=== PATIENT | female | born 1975 | race Caucasian/White ===

== ENCOUNTER 2021-08-21 14:58 | Emergency (ER) | payer BC ==
[~2021-08-21] VITALS: Ht 165.1 cm; Wt 75.3 kg
[2021-08-21 14:58] VITALS: BP_SYST 154
--- NOTE | 2021-08-21 15:06 | NUR ---
Omid ramos in ED - 08/21/21 at [address] Hays at bedside to assess pt.
--- NOTE | 2021-08-21 15:15 | NUR ---
Placed in room 08 . Placed on field enumerator, blood pressure machine and pulse oximeter. To gown for exam. Side rails up.
--- NOTE | 2021-08-21 15:20 | NUR ---
Dr Hays evaluating patient at bedside
--- NOTE | 2021-08-21 15:36 | NUR ---
Urine specimen obtained and sent to lab for analysis. HCG done.
[2021-08-21] MEDS ORDERED: NACL 0.9% 1,000 ML IV ONE (15:45)
--- NOTE | 2021-08-21 15:55 | NUR ---
# 20 gauge angiocath placed to left AC. Use of asceptic technique. Opsite placed over site. Blood return noted. Blood for lab drawn from site. Flushed with 10 cc of normal saline. No evidence of infiltration noted. Patient tolerated well.
[2021-08-21 16:01] LABS: BASOPHILS # (AUTO) 0.1 K/uL (0.0-0.2); BASOPHILS % (AUTO) 0.6 % (0.0-2.0); EOSINOPHILS % (AUTO) 0.5 % (0.0-4.0); HEMATOCRIT 39.9 % (36-48); HEMOGLOBIN 13.9 g/dL (12.0-16.0); LYMPHOCYTES # (AUTO) 1.2 K/uL (1.0-5.5); LYMPHOCYTES % (AUTO) 14.3 % (20.5-51.5); MEAN CORPUSCULAR HEMOGLOBIN 33 pg (27-31); MEAN CORPUSCULAR HGB CONC 35 % (32-36); MEAN CORPUSCULAR VOLUME 93 fL (79.0-98.0); MONOCYTES # (AUTO) 0.5 K/uL (0.0-1.0); MONOCYTES % (AUTO) 6.3 % (1.7-9.3); NEUTROPHILS # (AUTO) 6.7 K/uL (1.8-7.7); NEUTROPHILS % (AUTO) 78.3 % (40.0-70.0); PLATELET COUNT (AUTO) 250 K/uL (130-430); RED BLOOD CELL COUNT(AUTO) 4.27 MIL/uL (4.2-6.2); RED CELL DISTRIBUTION WIDTH 13.9 % (9.0-15.0); WHITE BLOOD COUNT (AUTO) 8.6 K/uL (4.8-10.8)
[2021-08-21 16:18] LABS: CALCIUM 9.6 mg/dL (8.4-11.0); CREATININE 0.9 mg/dL (0.55-1.30); POTASSIUM 3.8 mmol/L (3.5-5.1)
--- NOTE | 2021-08-21 16:20 | NUR ---
CT scan completed.
[2021-08-21 16:24] LABS: ALBUMIN 4.2 g/dL (3.4-4.8); TOTAL BILIRUBIN 0.5 mg/dL (0.0-1.0)
--- NOTE | 2021-08-21 17:00 | NUR ---
Patient given written and verbal discharge instructions and verbalizes understanding. Dr. Saúl FARMER MD discussed with patient the results and treatment provided. Patient in stable condition. ID arm band removed. IV catheter removed intact and dressing applied, no active bleeding. Patient educated on pain management and to follow up with PMD. Pain Scale 0/10. Opportunity for questions provided and answered. Medication side effect fact sheet provided.
[2021-08-21 17:01] LABS: BILIRUBIN,URINE NEGATIVE (NEGATIVE); BLOOD, URINE 2+ (NEGATIVE); COLOR,URINE YELLOW (YELLOW); GLUCOSE,URINE NEGATIVE (NEGATIVE); KETONES,URINE 1+ (NEGATIVE); LEUKOCYTE ESTERASE ,URINE NEGATIVE (NEGATIVE); NITRITE, URINE NEGATIVE (NEGATIVE); PROTEIN URINE NEGATIVE (NEGATIVE); UROBILINOGEN,URINE 0.2 (0.2-1.0)
[2021-08-21 17:11] LABS: CLARITY/URINE SLIGHTLY HAZY (CLEAR)
[2021-08-21 17:15] VITALS: BP_SYST 154
--- NOTE | 2021-08-21 17:15 | NUR ---
Pt had concerns regarding discharge and followup. Explained all tests and work up results with pt. Pt d/c'd home.
[2021-08-21 17:17] LABS: BACTERIA,URINE FEW /HPF (None Seen); WBC,URINE 0-3 /HPF (0-3)
== END 2021-08-21 17:15 | disposition home or self-care (01) ==
LOC: SED 14:58
DX: D25.9 Leiomyoma of uterus, unspecified (principal); K59.00 Constipation, unspecified; Z79.899 Other long term (current) drug therapy
CPT/HCPCS: 36415; 74177; 76376; 80053; 81000; 81025; 85025; 99285; Q9967